=== PATIENT | female | born 1985 | race Two or more races ===

== ENCOUNTER 2020-04-07 13:52 | Emergency (ER) | payer SELFPAY ==
[~2020-04-07] VITALS: Ht 170.2 cm; Wt 68.0 kg
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
[2020-04-07 14:13] LABS: BASOPHILS # (AUTO) 0.04 x10^3/uL (0-0.1); BASOPHILS % (AUTO) 1 % (0-1); EOSINOPHILS # (AUTO) 0.04 x10^3/uL (0-0.4); EOSINOPHILS % (AUTO) 1 % (1-7); LYMPHOCYTES # (AUTO) 2.93 x10^3/uL (1-3.4); LYMPHOCYTES % (AUTO) 43 % (22-44); MD NO; MEAN CORPUSCULAR HEMOGLOBIN 30.1 pg (27.0-34.8); MEAN CORPUSCULAR HGB CONC 33.6 g/dL (32.4-35.8); MEAN CORPUSCULAR VOLUME 89.7 fL (80-100); MEAN PLATELET VOLUME 7.8 fL (7.4-10.4); MONOCYTES # (AUTO) 0.27 x10^3/uL (0.2-0.8); MONOCYTES % (AUTO) 4 % (2-9); NEUTROPHILS # (AUTO) 3.59 x10^3/uL (1.8-6.8); NEUTROPHILS % (AUTO) 52 % (42-75); PLATELET COUNT 344 x10^3/uL (130-400); RED BLOOD COUNT 4.99 x10^6/uL (3.82-5.3); RED CELL DISTRIBUTION WIDTH 14.1 % (9.6-15.2)
[2020-04-07 14:26] LABS: ALANINE AMINOTRANSFERASE 58 U/L (12-78); ALBUMIN 4.1 g/dL (3.4-5.0); ANION GAP 8 mmol/L (5-15); CALCIUM 8.4 mg/dL (8.5-10.1); CHLORIDE 107 mmol/L (98-107); CREATININE 0.99 mg/dL (0.55-1.02)
[2020-04-07 14:30] LABS: ALKALINE PHOSPHATASE 90 U/L (45-117); BILIRUBIN,TOTAL 0.4 mg/dL (0.2-1.0); TOTAL PROTEIN 8.2 g/dL (6.4-8.2)
[2020-04-07 14:40] LABS: SALICYLATE LEVEL < 1.7 mg/dL (2.8-20.0)
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
--- NOTE | 2020-04-07 17:37 | NUR ---
PT NOW MORE AWAKE, AMBULATED TO BR WITH STEADY GAIT, ASKING FOR WATER. PT REMINDED OF NEED FOR URINE SAMPLE, PT AGREES TO THIS AND REQUESTING COFFEE AND WATER TO HELP HER PRODUCE A SAMPLE, PT GIVEN BOTH COFFEE AND WATER. WILL ATTEMPT AT LATER TIME FOR UDS. MEAL TRAY ORDERED
--- NOTE | 2020-04-07 18:58 | NUR ---
ASSUMED CARE OF PATIENT AT THIS TIME.
--- NOTE | 2020-04-07 19:34 | NUR ---
INTRODUCED SELF TO PATIENT AND ASSESSED. PT. REPORTS GOING THROUGH [employer] SITUATIONS BUT SHE HAS NO SUICIDAL THOUGHTS OR PLANS. REPORTS THAT SHE DRINKS OCCASIONALLY BUT DRANK TOO MUCH AND STARTED TO FEEL VERY SAD. REPORTS SHE IS FEELING MUCH BETTER AND EXPRESSES WANTING TO GO HOME. REPORTS SHE HAS A SAFE PLACE TO LIVE. GIVEN WATER. NO FURTHER CONCERNS AT THIS TIME. WILL CONTINUE TO MONITOR.
[2020-04-07 21:20] VITALS: BP 130/68
== END 2020-04-07 21:24 | disposition home or self-care (01) ==
LOC: ED 14:52
DX: F10.120 Alcohol abuse with intoxication, uncomplicated (principal)
CPT/HCPCS: 36415; 80053; 80307; 84703; 85025; 99283